=== PATIENT | female | born 1965 | race Caucasian/White ===

== ENCOUNTER 2021-10-08 07:04 | Emergency (ER) | payer BC ==
[~2021-10-08] VITALS: Ht 157.5 cm; Wt 72.6 kg
[~2021-10-08 07:04] MED LIST: WARF5TAB2 PO; WARF7.5T2 PO
--- NOTE | 2021-10-08 07:20 | NUR ---
Patient to ER bed 04 to gown for evaluation. Side rails up.
[2021-10-08 07:30] VITALS: BP_SYST 161
--- NOTE | 2021-10-08 07:30 | NUR ---
Pt. bib with swelling and lump on left side of neck since yesterday, states painful 07/15, no known injury or cause, 3 day prior was experiencing pain to left armpit and has visible reddend rash to that area
--- NOTE | 2021-10-08 07:40 | NUR ---
Dr Goode evaluating patient at bedside
[2021-10-08 08:41] LABS: BASOPHILS # (AUTO) 0.1 K/uL (0.0-0.2); BASOPHILS % (AUTO) 0.8 % (0.0-2.0); EOSINOPHILS # (AUTO) 0.1 K/uL (0.0-0.4); EOSINOPHILS % (AUTO) 1.6 % (0.0-4.0); HEMOGLOBIN 13.9 g/dL (12.0-16.0); LYMPHOCYTES # (AUTO) 2.2 K/uL (1.0-5.5); LYMPHOCYTES % (AUTO) 27.2 % (20.5-51.5); MEAN CORPUSCULAR HEMOGLOBIN 29 pg (27-31); MEAN CORPUSCULAR HGB CONC 34 % (32-36); MEAN CORPUSCULAR VOLUME 85 fL (79.0-98.0); MONOCYTES # (AUTO) 0.4 K/uL (0.0-1.0); MONOCYTES % (AUTO) 5.5 % (1.7-9.3); NEUTROPHILS # (AUTO) 5.2 K/uL (1.8-7.7); NEUTROPHILS % (AUTO) 64.9 % (40.0-70.0); PLATELET COUNT (AUTO) 203 K/uL (130-430); RED BLOOD CELL COUNT(AUTO) 4.84 MIL/uL (4.2-6.2); RED CELL DISTRIBUTION WIDTH 14.1 % (9.0-15.0)
[2021-10-08 08:53] LABS: CALCIUM 8.5 mg/dL (8.4-11.0); CREATININE 0.69 mg/dL (0.55-1.30); POTASSIUM 3.9 mmol/L (3.5-5.1)
[2021-10-08 08:58] LABS: ALBUMIN 3.4 g/dL (3.4-4.8); TOTAL BILIRUBIN 0.4 mg/dL (0.0-1.0)
[2021-10-08] MEDS ORDERED: KETOROLAC TROMETHAMINE 15 MG VIAL IVP ONE (09:00)
[2021-10-08] MEDS ORDERED: IOHEXOL 350 mgI/mL, 150 ML INFUS..BTL IV ONE (09:58)
[2021-10-08] MEDS ORDERED: IBUP-1969 PO (13:15)
[2021-10-08 14:14] VITALS: BP_SYST 161
--- NOTE | 2021-10-08 14:14 | NUR ---
Patient given written and verbal discharge instructions and verbalizes understanding. ER MD discussed with patient the results and treatment provided. Patient in stable condition. ID arm band removed. Rx of Ibuprofen given. Patient educated on pain management and to follow up with PMD. Pain Scale 2/10 Opportunity for questions provided and answered. Medication side effect fact sheet provided.
== END 2021-10-08 14:14 | disposition home or self-care (01) ==
LOC: SED 07:04
DX: R22.1 Localized swelling, mass and lump, neck (principal); M79.642 Pain in left hand
CPT/HCPCS: 36415; 70498; 73206; 76376; 80053; 85025; 93971; 96374; 99285; J1885; Q9967